=== PATIENT | female | born 1990 | race Caucasian/White ===

== ENCOUNTER → 2023-09-16 14:41 | Outpatient (CLI) | payer OTHER, SELFPAY ==
--- NOTE | ~2023-09-16 | US_ITS ---
EXAMINATION: US OB /maternal detail DATE: 09/16/2023 15:31 INDICATION: screening, unspecified. TECHNIQUE: Real-time ultrasound of the pelvis was performed. COMPARISON: None. FINDINGS: There is a single living fetus in variable presentation. The placenta is posterior, 4.6 cm from the cervix. The cervical length is 3.0 cm on transabdominal images, which is normal. heart rate is 156 beats per minute (bpm). The amniotic fluid volume is subjectively normal. The following biometric data were obtained: Biparietal diameter (BPD): 4.5 cm; head circumference (HC): 17.2 cm; abdominal circumference (AC): 14 .0 cm; femur length (FL): 3.0 cm. These measurements are concordant. Estimated weight is 291 g +/- 44 g, which correlates with the 29th percentile when 02/05/24 is us ed as estimated date of delivery. As single measurements, these parameters are each equal to the following estimated gestational ages: BPD: 19 weeks 5 days. HC: 19 weeks 6 days. AC: 19 weeks 3 days. FL: 19 weeks 2 days. estimated gestational age based solely on measurements from this exam is 19 weeks 4 days +/- 1 weeks 3 days. The cerebral ventricles, cerebellum, cisterna magna, nuchal fold, lip, and visualized portions of the spine are normal. The heart is normal. The diaphragm, stomach, kidneys, and bladder are normal. Ther e are two umbilical arteries to yield a 3-vessel cord. The cord insertion is normal. IMPRESSION: 1. Single living fetus in variable presentation. 2. Estimated weight is 291 g +/- 44 g, which correlates with the 29th percentile when 02/05/24 i s used as estimated date of delivery. 3. Normal anatomic survey. Reviewed, dictated and finalized at location A. DESIGN ENGINEER IMPRESSION: 1. Single living fetus in variable presentation. 2. Estimated weight is 291 g +/- 44 g, which correlates with the 29th pe rcentile when 02/05/24 is used as estimated date of delivery. 3. Normal anatomic survey.
== END ==
PROVIDERS: PCP Advanced Practice Midwife; Visit Provider Advanced Practice Midwife
DX: Z36.9 Encounter for antenatal screening, unspecified (principal)
CPT/HCPCS: 76805

== ENCOUNTER 2024-01-11 14:29 | Outpatient (RCR) | payer OTHER, SELFPAY ==
[2023-11-14 08:38] LABS: Hematocrit 38.3 % (37.0-47.0); Hemoglobin 11.8 g/dL (12.0-15.0)
[2023-11-14 08:58] LABS: Glucose 1 Hour PP 50gm Dose 116 mg/dL
[2023-11-14 09:13] LABS: Vitamin D 25 Hydroxy 37.2 ng/mL
[2023-11-14 09:38] LABS: HIV 1/2 Ab P24 Ag Result Negative (Negative)
== END 2024-02-12 23:59 | disposition home or self-care (01) ==
LOC: ANHOBOP 14:29
PROVIDERS: PCP Advanced Practice Midwife; Visit Provider Advanced Practice Midwife
DX: Z11.4 Encounter for screening for human immunodeficiency virus [HIV] (principal); Z29.13 Encounter for prophylactic Rho(D) immune globulin; O36.0130 Maternal care for anti-D [Rh] antibodies, third trimester, not applicable or unspecified; Z3A.00 Weeks of gestation of pregnancy not specified
CPT/HCPCS: 36415; 82306; 82947; 85014; 85018; 85461; 86703; 86850; 86900; 86901; 90384; G0432; J2790

== ENCOUNTER 2024-01-11 16:00 | Inpatient (IN) | payer OTHER, SELFPAY ==
[2024-01-11] VITALS (7 sets, daily range): BP systolic 95–136; BP diastolic 43–87; PULSE 73–104; RESP 16; TEMP 36.3; BMI 28.3
[2024-01-11 15:08] LABS: Basophils Percent Auto 0.2 % (0.2-1.2); Eosinophils Absolute Auto 0.2 K/mm3 (0-0.3); Eosinophils Percent Auto 1.1 % (0-4.4); Hematocrit 35.4 % (37.0-47.0); Hemoglobin 11.5 g/dL (12.0-15.0); Immature Granulocyte Absolute 0.11 K/mm3 (0.00-0.031); Immature Granulocyte Percent A 0.7 % (0-0.5); Lymphocytes Percent Auto 11.7 % (18.3-44.2); Mean Corpuscular HGB Conc 32.5 g/dl (32-36); Mean Corpuscular Hemoglobin 27.1 pg (26-34); Mean Corpuscular Volume 83.3 fl (80-100); Mean Platelet Volume 11.5 fl (7.4-10.4); Monocytes Absolute Auto 1.1 K/mm3 (0.1-0.6); Monocytes Percent Auto 7.1 % (2.6-8.5); Neutrophils Absolute Auto 12.2 K/mm3 (1.3-6.7); Neutrophils Percent Auto 79.2 % (45.5-73.1); Platelet Count Result 146 k/mm3 (150-375); Red Blood Count 4.25 M/mm3 (4.2-5.4); Red Cell Distribution Width 14.8 % (11.5-14.5); White Blood Count 15.5 K/mm3 (4.5-10.0)
[2024-01-11 15:14] LABS: Appearance Urine Clear (Clear); Bacteria Urine 1+ /hpf; Bilirubin Urine Negative (Negative); Blood Urine Negative (Negative); Color Urine Yellow (Yellow); Glucose Urine UA Negative (Negative); Ketones Urine Negative (Negative); Leukocyte Esterase Ur 2+ LEU/UL (Negative); Nitrate Urine Negative (Negative); Non Pathogenic Casts 0-2; Protein Urine Negative (Negative); RBC Urine 0-2 /hpf (0-2); Specific Grav Ur 1.004 (1.001-1.035); Squamous Epithelial Cell Urine Few /hpf (Few); Urobilinogen Urine 0.2 mg/dL (<2.0); pH Urine 6.5 (5.0-9.0)
[2024-01-11 15:17] LABS: Add Urine Microscopic? YES
[2024-01-11 15:23] LABS: Alanine Aminotransferase 66 U/L (6-35); Albumin Level 3.2 g/dL (3.5-5.1); Alkaline Phosphatase 148 U/L (38-126); Anion Gap 4 mmol/L (8-16); Aspartate Amino Transferase 87 U/L (14-36); Bilirubin,Total 0.4 mg/dL (0.2-1.3); Blood Urea Nitrogen 9 mg/dL (7-17); Calcium 8.8 mg/dL (8.4-10.2); Carbon Dioxide 23 mmol/L (22-30); Chloride 107 mmol/L (98-107); Estimated Glomerular Filt Rate > 60; Glucose 84 mg/dL (65-110); Potassium 3.5 mmol/L (3.4-5.0); Sodium 134 mmol/L (137-145); Uric Acid 4.2 mg/dL (2.5-7.5)
[2024-01-11 15:38] LABS: Creatinine Urine 17.7 mg/dL; Total Protein Urine Random 14 mg/dL; Ur Ttl Prot Creatinine Ratio 0.79 mg/mg (0-0.20)
--- NOTE | 2024-01-11 16:53 | OBADM ---
This patient, Ama Rey, admitted to the OB room OB Post 115 for observation. Patient/family oriented to hospital policies and general routines including ID bracelet, bed and alarms, visiting hours, pain management, procedures, bathroom and other care routines, personal items, smoking policy, room service/diet, and visiting hours. Patient/Family are encouraged to report perceived risks to care and to ask questions if they do not understand what they are told or what they should do.
[2024-01-11] MEDS: FAMOTIDINE 20 MG TABLET PO (20:02)
[2024-01-12] VITALS (147 sets, daily range): BP systolic 93–142; BP diastolic 36–104; PULSE 69–196; RESP 18–20; TEMP 36.5–37.7; O2SAT 81–100
[2024-01-12 05:39] LABS: Hematocrit 34.4 % (37.0-47.0); Hemoglobin 11.1 g/dL (12.0-15.0); Mean Corpuscular HGB Conc 32.3 g/dl (32-36); Mean Corpuscular Hemoglobin 27.1 pg (26-34); Mean Corpuscular Volume 83.9 fl (80-100); Mean Platelet Volume 11.9 fl (7.4-10.4); Platelet Count Result 102 k/mm3 (150-375); Red Cell Distribution Width 14.9 % (11.5-14.5); White Blood Count 14.9 K/mm3 (4.5-10.0)
[2024-01-12 05:59] LABS: Alanine Aminotransferase 108 U/L (6-35); Albumin Level 2.8 g/dL (3.5-5.1); Alkaline Phosphatase 146 U/L (38-126); Anion Gap 4 mmol/L (8-16); Aspartate Amino Transferase 127 U/L (14-36); Bilirubin,Total 0.5 mg/dL (0.2-1.3); Blood Urea Nitrogen 7 mg/dL (7-17); Calcium 8.3 mg/dL (8.4-10.2); Carbon Dioxide 20 mmol/L (22-30); Chloride 109 mmol/L (98-107); Estimated CRCL calculation 119 ml/min; Estimated Glomerular Filt Rate > 60; Glucose 84 mg/dL (65-110); Potassium 3.1 mmol/L (3.4-5.0); Sodium 133 mmol/L (137-145)
--- NOTE | 2024-01-12 07:49 | WPDOBADMIT ---
Obstetrics - Admit Note Admission Note: record reviewed. No pertinent additions to the history and/or any subsequent changes in the physical findings that are not consistent with the expected course of the were found. Additions to the history and/or subsequent changes in the physical findings follow. Patient called office yesterday afternoon with elevated BP, nausea and abdominal pain. BP high normal on admit and ok since admit but labs with low platelets and elevated enzymes. Both trending worse this am. Discussed with patient and recommend MIL. Cervix /-2 post. 1. IUP 36 02/06 2. Likely preeclampsia with developing HELLP syndrome-plan MIL with pitocin and early AROM
[2024-01-12] MEDS: OXYTOCIN 30 UNITS/NS 500 ML 30 UNITS/500 ML BAG 6 UNITS IV CONT (08:30)
[2024-01-12] MEDS: LACTATED RINGERS 1,000 ML 125 ML IV CONT ×2 (08:30→12:53)
--- NOTE | 2024-01-12 08:40 | LDADM ---
This patient, Ama Rey, was admitted to Labor/Delivery/Recovery 105 on 01/12/24 at 07:25. Plans for labor, pain management and were discussed with patient. Patient/family oriented to hospital policies and general routines including ID bracelet, bed and alarms, visiting hours, pain management, procedures, bathroom and other care routines, personal items, smoking policy, room service/diet and guest tray routines, infant security routines, and visiting hours. Patient/Family are encouraged to report perceived risks to care and to ask questions if they do not understand what they are told or what they should do. See OBIX for further documentation.
[2024-01-12 09:50] LABS: Rapid Plasma Reagin Non-Reactive (NonReactive)
--- NOTE | 2024-01-12 12:07 | PM.OBPNLAB ---
Pain Control Date/time seen: 01/12/24 12:07 Pain control: tolerating well and other (mild contractions) Pelvic Exam Dilation (cm): 1 (1.5) Effacement (%): 70 station: -2 Amniotic membrane status: Ruptured (clear fluid) Contractions Monitor mode: External Contraction pattern: Regular Contraction intensity: Mild Status status: Category l Assessment and Plan Assessment: induction ongoing
[2024-01-12 12:35] LABS: Immature Platelet Fraction Pct 10.4 % (0.9-11.2); Mean Platelet Volume 11.3 fl (7.4-10.4); Platelet Count Result 111 k/mm3 (150-375)
[2024-01-12 12:48] LABS: Alanine Aminotransferase 115 U/L (6-35); Albumin Level 3.1 g/dL (3.5-5.1); Alkaline Phosphatase 153 U/L (38-126); Anion Gap 3 mmol/L (8-16); Aspartate Amino Transferase 127 U/L (14-36); Bilirubin,Total 0.5 mg/dL (0.2-1.3); Blood Urea Nitrogen 7 mg/dL (7-17); Calcium 8.6 mg/dL (8.4-10.2); Carbon Dioxide 24 mmol/L (22-30); Chloride 107 mmol/L (98-107); Estimated CRCL calculation 119 ml/min; Estimated Glomerular Filt Rate > 60; Glucose 119 mg/dL (65-110); Potassium 3.3 mmol/L (3.4-5.0); Sodium 134 mmol/L (137-145)
[2024-01-12] MEDS: ONDANSETRON INJ 4 MG/2 ML VIAL IV PUSH ×2 (12:52→19:17)
[2024-01-12] MEDS: fentaNYL CITRATE INJ (*CRX) 100 MCG/2 ML VIAL 50 MCG IV PUSH ×3 (12:55→20:14)
[2024-01-12] MEDS: MAGNESIUM SULF 4 GM/WATER100ML 4 GM/100 ML BAG IVPB (18:57)
[2024-01-12] MEDS: OXYTOCIN 30 UNITS/NS 500 ML 30 UNITS/500 ML BAG 125 UNITS IV CONT (19:00)
--- NOTE | 2024-01-12 19:12 | PM.OBPRVD ---
OB - Vaginal Delivery Note Procedure Delivery date: 01/12/24 Events: HELLP Syndrome and Other (36 4/7 wks) Induction method: AROM and Per Pitocin Protocol Delivery monitor: External FHT and External Uterine Route of delivery: Laceration Description: Perineal - 4th Degree Delivery repair: vicryl (3-0, 4-0, 0 vicryl) Specimen: Yes (placenta) Quantitative Blood Loss (ml): 150 Anesthesia type: Epidural Disposition: Floor Complications: No immediate complications Narrative: Patient's perineum is very edematous. As soon as the head was coming past the perineum, I instructed the patient to quit pushing. The remainder of the head delivered spontaneously. Minimal traction delivered the shoulders. After the placenta delivered and the perineum was inspected, 4th degree laceration was noted. The rectal mucosa is torn approximately .75 cm and closed using 4-0 Vicryl in a subcuticular fashion. Allis clamps were used to grasp the sphincter which was then closed using interrupted 0 Vicryl. The the usual repair of the vaginal laceration was completed using 3-0 Vicryl in layers. Baby Date of : 01/12/24 Time of : 16:38 Weeks of gestation at delivery: 36 (36 4/7) gender: Female presentation: vertex position: Right Occiput Anterior Placenta delivery description: Spontaneous Cord Vessel Description: 3 Vessels, Delayed Cord Clamping and Around Body ( loose x1) Narrative: scores were not assigned as of the time of this dictation
--- NOTE | 2024-01-12 19:17 | PM.OBDSVD ---
DS: Admitting Diagnosis Discharge Date 01/14/24 Admitting Diagnosis intrauterine at 36 and 3/7 weeks HELLP syndrome DS: Discharge Diagnosis Discharge Diagnosis (1) (normal spontaneous vaginal delivery): Code(s): O80 - Encounter for full-term uncomplicated delivery Status: Acute (2) HELLP syndrome: Code(s): O14.20 - HELLP syndrome (HELLP), unspecified trimester Status: Acute OB - DS: Summary OB Procedures : NST, PIH Mgmt and Ultrasound OB Procedures Intrapartum: Spontaneous Vag Delivery OB Procedures: : None Peripartum Data Delivery Method: Natural Vaginal Laceration Description: Perineal - 4th Degree complications: none Status at Discharge Functional status at discharge: independent ambulation Overall status at discharge: patient is progressing back to baseline Time Spent with Patient Time attestation: Total time spent providing and/or coordinating discharge services: DS: Data Data Completed and Pending Pending studies at discharge: Pending at discharge 01/12/24 19:05 Surgical [PTH] Routine Labs on day of discharge: Labs from last 24 hours 01/12/24 01/12/24 01/12/24 12:25 07:56 05:26 WBC 14.9 H RBC 4.10 L Hgb 11.1 L Hct 34.4 L MCV 83.9 MCH 27.1 MCHC 32.3 RDW 14.9 H Plt Count 111 L 102 L MPV 11.3 H 11.9 H % Immature Plt Fraction 10.4 Sodium 134 L 133 L Potassium 3.3 L 3.1 L Chloride 107 109 H Carbon Dioxide 24 20 L Anion Gap 3 L 4 L BUN 7 7 Creatinine 0.60 L 0.60 L Estim Creat Clear Calc 119 119 Estimated GFR > 60 > 60 Glucose 119 H 84 Uric Acid 5.0 Calcium 8.6 8.3 L Total Bilirubin 0.5 0.5 AST 127 H 127 H ALT 115 H 108 H Alkaline Phosphatase 153 H 146 H Total Protein 6.0 L 6.0 L Albumin 3.1 L 2.8 L RPR Non-reactive Blood Type O Negative Antibody Screen Positive Antibody Identification Inconclusive Antigen Identification TNP RUTH ANN, IgG Interpret Not Performed RUTH ANN, Poly Interpret Negative RUTH ANN, Complement Interp Not Performed Discharge Plan Discharge Attending physician on discharge: Joan Cordero Discharging Clinician: Joan Cordero Anticipated Discharge Date/Time: 01/14/24 19:18 Patient Disposition: Home, Self-Care Activity: may shower and pelvic rest Diet: regular Patient Instructions: Antibiotic Form Stand Alone Forms: General Discharge Information Follow-up/Referrals: Joan Cordero MD [Physician] - 1 Week ( and 6 week) Discharge Medications: Continued #2 Tablet 1 tablet PO DAILY cholecalciferol (vitamin D3) 1,250 mcg (50,000 unit) Tablet 1,250 mcg PO WEEKLY albuterol sulfate 90 mcg/actuation Hfa Aerosol Inhaler 2 puff INHALATION QID PRN (Reason: Wheezing) Claritin-D 24 Hour 10-240 mg Tablet Extended Release 24 Hr 1 tablet PO DAILY Flonase Allergy Relief 50 mcg EACH NARE DAILY Discontinued Colace 50 mg Capsule 50 mg PO DAILY Adult Low Dose Aspirin 81 mg Tablet 81 mg PO DAILY Date of admission: 01/12/24 07:25 Primary Care Provider: Emerald Espino Admitting Provider: Joan Cordero Attending physician on admission: Joan Cordero Condition: Stable
[2024-01-12] MEDS: MAGNESIUM SULF 20GM/WATER500ML 500 ML 50 MG IV CONT (19:20)
[2024-01-12] MEDS: HYDROcodone/acetaminophen (*CRX) 5-325 MG TABLET 1 TAB PO (20:05)
[2024-01-12] MEDS: IBUPROFEN 600 MG TABLET PO (20:46)
--- NOTE | 2024-01-12 21:30 | OBPPTRN ---
Patient transferred to post room #280 via wheelchair. Support person present. Oriented to unit, room, information board, rooming in, admission packet and security measures. Patient verbalizes understanding.
[2024-01-13] MEDS: LACTATED RINGERS 1,000 ML 75 ML (01:18)
[2024-01-13] MEDS: HYDROcodone/acetaminophen (*CRX) 5-325 MG TABLET 1 TAB PO ×4 (01:18→21:20)
[2024-01-13 04:30] VITALS: BP 113/69; PULSE 84; RESP 18; TEMP 36.6; O2SAT 99
[2024-01-13 04:51] LABS: Basophils Absolute Auto 0.1 K/mm3 (0.0-0.1); Basophils Percent Auto 0.2 % (0.2-1.2); Eosinophils Absolute Auto 0.1 K/mm3 (0-0.3); Eosinophils Percent Auto 0.2 % (0-4.4); Hematocrit 30.9 % (37.0-47.0); Hemoglobin 9.9 g/dL (12.0-15.0); Immature Granulocyte Absolute 0.22 K/mm3 (0.00-0.031); Immature Granulocyte Percent A 0.8 % (0-0.5); Lymphocytes Absolute Auto 2.63 K/mm3 (0.9-3.2); Lymphocytes Percent Auto 9.7 % (18.3-44.2); Mean Corpuscular Volume 84.2 fl (80-100); Mean Platelet Volume 12.3 fl (7.4-10.4); Monocytes Absolute Auto 1.4 K/mm3 (0.1-0.6); Monocytes Percent Auto 5.2 % (2.6-8.5); Neutrophils Absolute Auto 22.8 K/mm3 (1.3-6.7); Neutrophils Percent Auto 83.9 % (45.5-73.1); Platelet Count Result 117 k/mm3 (150-375); Red Blood Count 3.67 M/mm3 (4.2-5.4); Red Cell Distribution Width 15.1 % (11.5-14.5); White Blood Count 27.2 K/mm3 (4.5-10.0)
[2024-01-13 05:01] LABS: Alanine Aminotransferase 91 U/L (6-35); Albumin Level 2.6 g/dL (3.5-5.1); Alkaline Phosphatase 144 U/L (38-126); Anion Gap 5 mmol/L (8-16); Aspartate Amino Transferase 97 U/L (14-36); Bilirubin,Total 0.4 mg/dL (0.2-1.3); Blood Urea Nitrogen 7 mg/dL (7-17); Carbon Dioxide 21 mmol/L (22-30); Chloride 104 mmol/L (98-107); Estimated CRCL calculation 104 ml/min; Estimated Glomerular Filt Rate > 60; Glucose 99 mg/dL (65-110); Potassium 3.4 mmol/L (3.4-5.0); Sodium 130 mmol/L (137-145)
[2024-01-13 05:26] LABS: Hypochromasia 1+; Ovalocytes 1+; Platelet Estimate Decreased (Adequate); Poikilocytosis 1+
[2024-01-13 05:27] LABS: Burr Cells 1+; Schistocytes None Seen
[2024-01-13] MEDS: MAGNESIUM SULF 20GM/WATER500ML 500 ML 50 MG (05:50)
--- NOTE | 2024-01-13 06:09 | PM.OBPNVD ---
OB - PN: Subj Subjective Date/time seen: 01/13/24 06:09 Patient comments: no complaints and pain well controlled baby status: doing well OB - PN: Obj Data Labs 01/13/24 04:11 01/13/24 04:11 Labs: Laboratory Results - last 24 hr 01/12/24 01/12/24 01/13/24 07:56 12:25 04:11 WBC 27.2 H RBC 3.67 L Hgb 9.9 L Hct 30.9 L MCV 84.2 MCH 27.0 MCHC 32.0 RDW 15.1 H Plt Count 111 L 117 L MPV 11.3 H 12.3 H Immature Gran % (Auto) 0.8 H Neut % (Auto) 83.9 H Lymph % (Auto) 9.7 L [place] % (Auto) 5.2 Eos % (Auto) 0.2 Baso % (Auto) 0.2 Lymph # (Auto) 2.63 [place] # (Auto) 1.4 H Eos # (Auto) 0.1 Baso # (Auto) 0.1 Abs Immat Gran (auto) 0.22 H Absolute Neuts (auto) 22.8 H Absolute Nucleated RBC 0.000 Nucleated RBC % 0.0 Platelet Estimate Decreased % Immature Plt Fraction 10.4 Hypochromasia 1+ Poikilocytosis 1+ Ovalocytes 1+ [place] Cells 1+ Schistocytes None seen Sodium 134 L 130 L Potassium 3.3 L 3.4 Chloride 107 104 Carbon Dioxide 24 21 L Anion Gap 3 L 5 L BUN 7 7 Creatinine 0.60 L 0.70 Estim Creat Clear Calc 119 104 Estimated GFR > 60 > 60 Glucose 119 H 99 Calcium 8.6 7.0 L Total Bilirubin 0.5 0.4 AST 127 H 97 H ALT 115 H 91 H Alkaline Phosphatase 153 H 144 H Total Protein 6.0 L 5.0 L Albumin 3.1 L 2.6 L RPR Non-reactive Blood Type O Negative O Negative Antibody Screen Positive Positive Antibody Identification Inconclusive Antigen Identification TNP RUTH ANN, IgG Interpret Not Performed RUTH ANN, Poly Interpret Negative RUTH ANN, Complement Interp Not Performed OB - PN A/P Assessment and Plan (1) HELLP syndrome: Code(s): O14.20 - HELLP syndrome (HELLP), unspecified trimester Status: Acute Assessment and Plan: labs improving, no diuresis yet, BP normal magnesium x 24 hours Plan day: 1 Plan: routine care (after 24 hours will ambulate ) Time Spent With Patient Time: Total time spent is greater than 50% in coordination of care (as documented) at patient's floor/unit and/or counseling patient: Exam GI: Inspection: distended GI Palp: Yes Other GI palpation findings present Percussion: Yes tympanic to percussion : Bimanual exam- vagina & uterus: other (Uterus firm, nt @U)
[2024-01-13] MEDS: POLYSACCHARIDE IRON COMPLEX 150 MG CAPSULE PO ×2 (07:05→16:27)
[2024-01-13] MEDS: MULTIVIT/MIN/PREN/FOL AC/IRON TABLET 1 TAB PO (07:05)
[2024-01-13] MEDS: DOCUSATE SODIUM 100 MG CAPSULE PO ×2 (07:05→16:27)
[2024-01-13] MEDS: IBUPROFEN 600 MG TABLET PO ×3 (07:05→21:20)
[2024-01-13 07:35] VITALS: BP 117/70; PULSE 88; RESP 16; TEMP 36.7; O2SAT 100
--- NOTE | 2024-01-13 08:53 | WPDANLDPN2 ---
Anes-Prog Note L&D Date/Time: 01/13/24 08:53 Comfortable throughout: labor and delivery Neuraxial method: epidural Epidural/Spinal procedure site: clean & non-tender Neuro status: Neuro function grossly intact. Cardiovascular status: normal Respiratory status: normal Airway patency: baseline Mental status: baseline Post-Op hydration status: normal Vital Signs: Last Vital Signs Temp 36.6 C 01/13/24 04:30 Pulse 84 01/13/24 04:30 Resp 18 01/13/24 04:30 BP 113/69 01/13/24 04:30 Pulse Ox 99 01/13/24 04:30 O2 Del Method Room Air 01/12/24 08:57 Pain score (VAS): 10 I/O: Intake & Output 01/12/24 01/13/24 01/13/24 23:59 07:59 15:59 Output Total 150 Balance -150 Post-procedural complaints: none Patient feedback: Patient satisfied with anesthetic care.
--- NOTE | 2024-01-13 11:25 | PC.NURSE ---
[id number] were made, then consulted with patient to assess needs related to . Mother led the conversation with her?plans to feed?her infant, the?experience so far, and the feeding plan of attempting, pumping, and supplementing. Infant is demonstrating early feeding cues. With permission infant was unwrapped, diaper changed, then placed [id number] on mothers chest/breast. Encouraged understanding of the benefits of skin to skin (demonstrating unwrapping infant and placing upright on her chest), stimulating with massage touch, changing positions to encourage wakefulness, how to watch for early feeding cues, responsive feeding, feeding on demand (aiming for 8-12 times in 24 hours, about every 2-3 hours), milk production, building/maintaining a milk supply, duration of feeding, signs of adequate intake/output and how to record on the feeding sheet. Mother works well with her infant with encouragement, education, and we discussed late infant behaviors less than 24 hours old. Breast assessment of minimal breast tissue with very little change in with everted nipples. Breast pump was provided prior to meeting LC. Mother has been pumping and RN KALPESH demonstrated finger feeding the colostrum pumped to her infant. Instructions given on cleaning, care, usage, that there should be no pain, pumping schedule for milk production, collection, and storage of human milk. Patient was assessed for correct placement, flange size, to pump for comfort and nipple stretching/stimulation for adequate milk production every 3 hours (8 times in 24 hours) 1-2 times at night. Mother voiced understanding of the education shared along with mom/baby guide and the pump measurement, flange fit handout for additional resource information. Mother denies pain with pumping and points to the correct fit picture on the handout. Reviewed comfort measures of healing with a warm, wet washcloth to rinse breast, then leave open to air-dry, good handwashing when or touching the breast/nipples to prevent infection. was placed [id number], demonstrated stimulating to breastfeed using the laid-back position. Father of baby was instructed on cleaning and care of the pump parts. Mother voiced understanding of skin to skin, stimulating with massage touch, responsive feedings, hand expressed colostrum, talking to to encourage if it has been 2 -2.5 hours since the start of the last , to call if infant does not latch, or if there is discomfort with . Resources used for education were facilitated with the visual educational handouts/ tool/mom and baby guide. Inpatient/outpatient resources provided with feeding sheet, name written on the communication board, and the mom/baby guide. Parents voiced understanding of information, demonstrated learning and will call if there is a request for assistance.
--- NOTE | 2024-01-13 11:28 | PC.NURSE ---
bladder scanner used, 626 mls present.
--- NOTE | 2024-01-13 11:31 | PC.NURSE ---
Pt was taken to void by SERVICE PLANNER for 400mls as supplies were being gathered to place cath. I was not informed of this by SERVICE PLANNER until after UC was placed. Pts perineum remains edematous with ice pack in place.
[2024-01-13 12:30] VITALS: BP 107/57; PULSE 69; RESP 18; TEMP 37.1
[2024-01-13 12:45] VITALS: BP 109/63; PULSE 84; RESP 18; TEMP 36.6; O2SAT 100
[2024-01-13] MEDS: RHO(D) IMMUNE GLOBULIN 300 MCG/2 ML SYRINGE IM (13:56)
[2024-01-13] MEDS: LACTATED RINGERS 1,000 ML 75 ML IV CONT (16:21)
[2024-01-13] MEDS: MAGNESIUM SULF 20GM/WATER500ML 500 ML 50 MG IV CONT (16:23)
[2024-01-13 16:27] VITALS: BP 119/69; PULSE 86; RESP 16; TEMP 36.8; O2SAT 100
[2024-01-13 20:00] VITALS: BP 126/70; PULSE 89; RESP 16; TEMP 36.7; O2SAT 100
[2024-01-14 00:40] VITALS: BP 127/68; PULSE 87
[2024-01-14 04:00] VITALS: BP 120/69; PULSE 73; RESP 16; TEMP 36.7; O2SAT 100
[2024-01-14] MEDS: HYDROcodone/acetaminophen (*CRX) 5-325 MG TABLET 1 TAB PO (04:15)
[2024-01-14] MEDS: IBUPROFEN 600 MG TABLET PO (04:15)
--- NOTE | 2024-01-14 07:50 | PM.OBPNVD ---
OB - PN: Subj Subjective Date/time seen: 01/14/24 07:50 Patient comments: no complaints and pain well controlled baby status: doing well OB - PN: Obj Data Labs 01/13/24 04:11 01/13/24 04:11 Labs: Laboratory Results - last 24 hr 01/13/24 04:11 Blood Type O Negative Antibody Screen Positive Antibody Identification TNP Antigen Identification TNP RUTH ANN, IgG Interpret TNP RUTH ANN, Poly Interpret TNP RUTH ANN, Complement Interp TNP Screen Negative Baby's Blood Type O pos Baby's RUTH ANN Positive Doses of RhIg Required 1 OB - PN A/P Plan day: 2 Plan: routine care, discharge home, follow up 6 weeks and other (plans condoms until IUD) Time Spent With Patient Time: Total time spent is greater than 50% in coordination of care (as documented) at patient's floor/unit and/or counseling patient: Exam : Bimanual exam- vagina & uterus: other (Uterus firm, nt @U)
[2024-01-14] MEDS: MULTIVIT/MIN/PREN/FOL AC/IRON TABLET 1 TAB PO (08:09)
[2024-01-14] MEDS: DOCUSATE SODIUM 100 MG CAPSULE PO (08:10)
[2024-01-14] MEDS: POLYSACCHARIDE IRON COMPLEX 150 MG CAPSULE PO (08:10)
[2024-01-14 09:05] VITALS: BP 141/72; PULSE 91; RESP 16; TEMP 37.3; O2SAT 99
--- NOTE | 2024-01-14 10:50 | PC.NURSE ---
Patient instructed on viewing the discharge video Mother & Baby Care, The First Two Weeks . Patient was given the opportunity and encouraged to ask questions. Patient verbalized understanding of information shared and has been given the mother/baby guide for home reference.
[2024-01-14 12:44] VITALS: BP 130/69; PULSE 88; RESP 16; TEMP 37.4; O2SAT 98
--- NOTE | 2024-01-14 15:29 | PC.NURSE ---
[id number] Report received that mother mostly bottle fed infant formula last night. Consulted with patient to assess needs related to . Discussed with mother her successes, concerns and any questions she has. We reviewed working with the infant, supporting breast, protecting her nipples with an optimal deep latch, good positioning, and good hand washing. Encouraged understanding the benefits of skin to skin, responding to feeding cues, frequencies of feeding 8-12 times in 24 hours (approximately 2-3 hours), duration of feedings, milk production, intake/output feeding sheet and signs of adequate intake encouraging swallowing at the breast. Infant is giving time to use instincts on mothers chest/breast, however; doesn't self attach with baby led feeding technique. Infant cries when directed to the breast. Education, demonstration, and practice hand expressing with colostrum visualized from both breast. mouth assessment shows a tight lower frenulum. Reviewed positioning and alignment, supporting breast, off-centered (asymmetrical latch) and leading with the chin with big, open, wide gape with mother-led . Late doesn't latch, closes mouth, eyes and makes no effort to latch. Mother states drinks from the bottle well and she doesn't care to not breastfeed. Resources used to facilitate learning were used from the visual handouts/mom and baby guide. Mother voiced understanding of the education shared, to call for assistance if the infant does not latch or if there is discomfort with . Reported to the Primary RN.
[2024-01-16 10:35] VITALS: BP 123/76; PULSE 89; RESP 18; TEMP 36.7; O2SAT 99
== END 2024-01-14 17:00 | disposition home or self-care (01) | DRG 768 ==
LOC: ANHOBOP 16:49 → ANHOBPP 16:49 → ANHLDR 01-12 08:16 → ANHOB2 01-12 21:44
PROVIDERS: Admitting Provider Obstetrics & Gynecology Gynecology; PCP Advanced Practice Midwife; Visit Provider Obstetrics & Gynecology Gynecology
DX: O14.24 HELLP syndrome, complicating childbirth (principal); Z37.0 Single live birth; O14.94 Unspecified pre-eclampsia, complicating childbirth; O70.3 Fourth degree perineal laceration during delivery; O69.82X0 Labor and delivery complicated by other cord entanglement, without compression, not applicable or unspecified; Z3A.36 36 weeks gestation of pregnancy
CPT/HCPCS: 36415; 59025; 80053; 81001; 82570; 84156; 84550; 85025; 85027; 85049; 85055; 85461; 86592; 86850; 86880; 86900; 86901; 86902; 87086; 88307; 90384; A9270; J2405; J2590; J2790; J2795; J3010; J3475; J7120

== ENCOUNTER 2024-05-23 00:37 | Day surgery (SDC) | payer OTHER, SELFPAY ==
--- NOTE | 2024-05-16 09:42 | PC.NURSE ---
Report to the Outpatient Waiting Room, entrance under the green pavilion located off [facility], at time 1145 on date 05/23/24. Planned Procedure Time: 1345. Time changes happen often and if your time is changed the preop area will call you the afternoon before. - You and your visitor will be asked to self-screen and do not enter if you have any COVID symptoms. - A mask is optional within the hospital at this time. Patients may have clear liquids (water, carbonated beverages, clear teas, apple juice) until 3 hours prior to surgery with a maximum of 20 ounces. 1045 - No food from midnight until time of surgery - Infants may have breast milk until 4 hours before surgery, formula 6 hours prior to surgery. - Children will be allowed to drink immediately following surgery. If applicable, please bring a bottle or sippy cup to assist with drinking. Juice, water, soda, and popsicles are readily available. For infants on formula, please bring formula the day of surgery. Pacifiers are allowed. Take the following medications with a SIP of water the morning of surgery: NONE DO NOT STOP ANY OF YOUR OTHER PRESCRIPTION MEDICATIONS PRIOR TO SURGERY ?EXCEPT THE FOLLOWING Medications to discontinue per physician VITAMINS AND SUPPLEMENTS STOP ON 05/20/24 Date to take last dose Please no make-up, nail danish, hairspray, perfume, deodorant, or body powder the day of surgery. No jewelry (including any body piercings) or valuables the day of surgery, leave them at home. Please take a shower or bath the night before, or the morning of, surgery with an antibacterial soap. Wear comfortable, loose fitting clothing. Children are encouraged to wear pajamas. - Jewelry must be removed prior to entering the operating room. Rings and piercings that are not removed may be cut off. - The hospital will not accept responsibility for valuables. - Please leave all valuables, including medications, at home the day of surgery. If you are going home after surgery, a licensed funeral driver must drive you home. - NO public transportation without another adult if you receive anesthesia. - We recommend that an adult stay with you for 24 hours following discharge. - We also recommend that you do not drive, make important decision, drink alcoholic beverages, or take any drugs that were not prescribed by your health care provider for at least 24 hours after your discharge time. For Pediatric surgeries, we recommend two adults accompany the child home. Follow any additional instructions given to you from your surgeon. If you or anyone in your household have experienced Covid symptoms in the past week, please notify your surgeon or the nurse liaison at the phone number below for possible testing. Telephone instructions given to PATIENT- MACKENZIE ANDERS and asked if any additional questions and then verbalized understanding. Patient advised to call surgeon office or pre surgery nurse liaison [phone] if any additional questions.
[2024-05-16 09:47] VITALS: BMI 22.6
--- NOTE | 2024-05-23 08:07 | WPDHPUPDATE1 ---
History and Physical Update Update Date/Time: 05/23/24 08:07 History and Physical has been reviewed, including an updated exam of the patient. There are NO changes in the patient's condition. Risks, benefits, and alternatives have been discussed and questions answered. Patient agrees to proceed with procedure.
--- NOTE | 2024-05-23 08:07 | PM.HPGS ---
History of Present Illness History of Present Illness Consent: Risks, benefits, and alternatives have been discussed and questions answered. Patient agrees to proceed with procedure. Chief complaint: granulation tissue Narrative: Ama Rey is a 33 year old female with persistent granulation tissue of her perineal laceration. At the patient's 6 week visit she was noted have a 3x1cm area of granulation tissue over her perineal incision. This was cauterized with silver nitrate. Patient returned a month later for an IUD placement and the granulation tissue was again noted and was excised. Silver nitrate was applied to the base. One month later the patient reported pain had returned after about 2 weeks. On exam she has again 3 separate areas of granulation tissue. silver nitrate was again applied. Follow-up exam 2 weeks later the granulation tissue had recurred and there was approximately a 1/2cm separation of the incision. It was recommended to undergo operative repair with excision and revision of the perineal laceration. Risks of infection, bleeding, poor healing, and persistent pain are reviewed. Patient voices understanding and agrees to proceed. Review of Systems Review of Systems: not repeated day of surgery; patient states no changes in status [facility] Past Medical History Medical History (Updated 05/23/24 @ 08:13 by Joan Cordero MD) Asthma Eczema (normal spontaneous vaginal delivery) January 2024 36 week delivery with HELLP syndrome 4th degree laceration Family History Family History (Updated 01/11/24 @ 15:40 by Viviane Jesus RN) Grandparent Diabetes mellitus Glaucoma Mother Diabetes mellitus Social History Social History Smoking status: Never smoker Substance use: never Do You Feel Safe in your Home?: Yes Lack of Transportation: No Lack of Food: Never True Current Housing: I Have Housing Concerned About Future Housing: No Difficulty Paying Gas/Electric Bills: No Difficulty Paying for Meds: No Currently Unemployed: No Education: Bachelor's Degree Difficulty w/ Childcare or Family Care: No Spiritual care concerns: No Meds Home Medications and Allergies Home Medications Medication Instructions Recorded Confirmed Type albuterol sulfate 90 mcg/actuation 2 puff inhalation QID PRN Wheezing 01/11/24 05/16/24 History aerosol inhaler cholecalciferol (vitamin D3) 1,250 1,250 mcg PO WEEKLY 01/11/24 05/16/24 History mcg (50,000 unit) tablet prenat.vits,roberto,hib-occa-[id number] 1 tablet PO HS 01/11/24 05/16/24 History Flonase Allergy Relief 50 mcg EACH NARE HS allergies 01/12/24 05/16/24 History loratadine-pseudoephedrine ER 10 1 tablet PO HS 01/12/24 05/16/24 History mg-240 mg tablet,extended [id number] (Claritin-D 24 Hour) docusate sodium 50 mg capsule 50 mg PO HS 05/16/24 05/16/24 History Allergies Allergy/AdvReac Type Severity Reaction Status Date / Time No Known Allergies Allergy Verified 05/16/24 09:33 Exam Const: General: healthy appearing and alert Orientation/consciousness: patient oriented x3 Resp: Effort & Inspection: normal respiratory effort : External Female Exam: laceration and other ( granulation tissue with approximately 1cm separation) Speculum Exam - Vagina: normal appearance of the vagina and normal vaginal discharge Speculum Exam - Cervix: normal appearance of the cervix Bimanual exam- vagina & uterus: uterine size normal and consistency normal Bimanual Exam- Adnexa, other: normal adnexae and No adnexal tenderness Neuro: General: patient oriented x3 Assessment and Plan Assessment and plan (1) Perineal laceration during delivery: Code(s): O70.9 - Perineal laceration during delivery, unspecified Status: Acute Assessment and Plan: Poor healing of vaginal laceration. Due to failure of conservative measures, it was recommended to undergo revision of her perineal
[2024-05-23] MEDS: LACTATED RINGERS 1,000 ML 30 ML IV CONT (12:16)
--- NOTE | 2024-05-23 12:32 | P.PNAN_ITS ---
Anes - Initial Pre Proc Eval Procedure: Operation Date: 05/23/24 13:45 Proposed Procedures p Perineal Revision - Joan Cordero MD Date/Time: 05/23/24 12:32 Surgeon: Joan Cordero MD Pre Op Diagnosis: granulation tissue Patient Data Age: 33 Gender: F Height: 1.68 m Weight: 63.6 kg Allergies Allergy/AdvReac Type Severity Reaction Status Date / Time No Known Allergies Allergy Verified 05/16/24 09:33 Home Medications Medication Instructions Recorded Confirmed Type albuterol sulfate 90 mcg/actuation 2 puff inhalation QID PRN Wheezing 01/11/24 05/16/24 History aerosol inhaler cholecalciferol (vitamin D3) 1,250 1,250 mcg PO WEEKLY 01/11/24 05/16/24 History mcg (50,000 unit) tablet prenat.vits,roberto,ihs-niex-glbwo 1 tablet PO HS 01/11/24 05/16/24 History Flonase Allergy Relief 50 mcg EACH NARE HS allergies 01/12/24 05/16/24 History loratadine-pseudoephedrine ER 10 1 tablet PO HS 01/12/24 05/16/24 History mg-240 mg tablet,extended [id number] (Claritin-D 24 Hour) docusate sodium 50 mg capsule 50 mg PO HS 05/16/24 05/16/24 History Patient hx anesthesia problems: none Family hx anesthesia problems: none Results Review: All pre-operative results and documents have been reviewed as part of the pre- operative evaluation. [facility] Past Medical History Medical History Asthma Eczema (normal spontaneous vaginal delivery) January 2024 36 week delivery with HELLP syndrome 4th degree laceration Family History Family History Grandparent Diabetes mellitus Glaucoma Mother Diabetes mellitus Social History Social History Smoking status: Never smoker Substance use: never Do You Feel Safe in your Home?: Yes Lack of Transportation: No Lack of Food: Never True Current Housing: I Have Housing Concerned About Future Housing: No Difficulty Paying Gas/Electric Bills: No Difficulty Paying for Meds: No Currently Unemployed: No Education: Bachelor's Degree Difficulty w/ Childcare or Family Care: No Spiritual care concerns: No Anes - Eval Final PreProcedure Day of Procedure 05/23/24 12:32 Patient weight: normal Heart: regular rate and rhythm Lungs: clear to auscultation Airway: Mallampati scale class II Neurological: alert and oriented Last oral intake: >/= 8 hours ASA classification: II Emergent: no Anesthetic plan: proceed Anesthesia type and monitoring: general GIVS and standard monitoring Results Review: All pre-operative results and documents have been reviewed as part of the pre- operative evaluation. Allergen induced asthma. Informed Consent: The patient's anesthetic plan and its attendant risks and benefits were discussed with the patient/family/POA. Questions were solicited and answers pr ovided to the satisfaction of the patient/family/POA.
[2024-05-23] MEDS: KETOROLAC 15 MG/ML VIAL (*BKC) IV PUSH (13:07)
[2024-05-23] MEDS: LIDO 1%/EPINEPHRINE 1:100,000 50 ML VIAL 8 ML INFILTRATE (13:07)
[2024-05-23 13:14] VITALS: BP 102/68; PULSE 79; RESP 18; TEMP 36.9; O2SAT 100
--- NOTE | 2024-05-23 13:37 | W.PM.PROC2 ---
Procedure Note - Detailed Date of Procedure 05/23/24 Pre-op Diagnosis granulation tissue; poor wound healing Post-op Diagnosis Same Procedure Performed vaginal-perineal revision of laceration Surgeon Joan Cordero MD Anesthesia MAC and Local Findings 3cm area of perineal skin that is incompletely healed with granulation tissue over grown 1cm area vaginal tissue that is incompletely healed with granulation tissue Description of Procedure The patient is taken to the operating room and placed under anesthesia in the dorsal lithotomy position. She was prepped and draped in the usual sterile fashion. The peritoneal incision was injected with 1% lidocaine with epinephrine. An elliptical portion of skin is taken around the nonhealing wound using a scalpel. There was also a 1cm area and the vaginal tissue just above that is also removed with a scalpel. The tissue was debrided until healthy skin is obtained. The vaginal tissue is reapproximated using 3-0 Monocryl in a running fashion. By hymenal ring is reached and the suture was placed below the hymenal ring. The deep tissues were brought together in a running stitch which continued to the base of incision. The same suture was used to subcuticularly close the skin until the hymenal ring is again reached. Good hemostasis is obtained. Good skin closure and reapproximation is obtained. Estimated Blood Loss 25 Drains No Packing No Pathology None sent Complications No immediate complications Condition Stable Disposition PACU
[2024-05-23 13:42] VITALS: BP 99/50; PULSE 89; RESP 14; O2SAT 100
[2024-05-23 14:00] VITALS: BP 103/61; PULSE 67; RESP 14
[2024-05-23 14:30] VITALS: BP 105/58; PULSE 70; RESP 16
== END 2024-05-23 14:31 | disposition home health service (06) ==
PROVIDERS: PCP Advanced Practice Midwife; Visit Provider Obstetrics & Gynecology Gynecology
PROC: (CPT 57260; principal; 2024-05-23 13:45)
DX: N89.8 Other specified noninflammatory disorders of vagina (principal); L92.8 Other granulomatous disorders of the skin and subcutaneous tissue; J45.909 Unspecified asthma, uncomplicated; Z79.51 Long term (current) use of inhaled steroids
CPT/HCPCS: 56810; A9270; J1100; J1885; J2250; J2405; J2704; J3010; J7120